=== PATIENT | female | born 1965 | race Caucasian/White ===

== ENCOUNTER 2022-07-22 18:33 | Emergency (ER) | payer BC ==
[~2022-07-22] VITALS: Ht 162.6 cm; Wt 50.8 kg
[2022-07-22] MEDS ORDERED: LISINOPRIL2.5 MG PO (19:09)
[2022-07-22] MEDS ORDERED: ROSUVASTATIN CA20 MG PO (19:09)
[2022-07-22] MEDS ORDERED: METOPROLOL SUCC25 MG PO (19:09)
[2022-07-22] MEDS ORDERED: FUROSEMIDE40 MG PO (19:09)
[2022-07-22] MEDS ORDERED: ECOTRIN81 MG PO (19:10)
== END 2022-07-22 22:29 | disposition home or self-care (01) ==
LOC: ER 18:33
DX: S59.911A Unspecified injury of right forearm, initial encounter (principal); S69.91XA Unspecified injury of right wrist, hand and finger(s), initial encounter; W19.XXXA Unspecified fall, initial encounter; Y99.8 Other external cause status; Y93.01 Activity, walking, marching and hiking; Y92.89 Other specified places as the place of occurrence of the external cause; S89.91XA Unspecified injury of right lower leg, initial encounter